=== PATIENT | male | born 1980 | race Two or more races ===

== ENCOUNTER 2020-12-01 12:45 | Emergency (ER) | payer OTHER ==
[~2020-12-01] VITALS: Ht 172.7 cm; Wt 72.7 kg
[2020-12-01 13:09] VITALS: BP 151/101
[2020-12-01] MEDS ORDERED: NAPR-56 PO (13:48)
== END 2020-12-01 14:15 | disposition home or self-care (01) ==
LOC: ER 12:45
DX: M25.562 Pain in left knee (principal); M25.462 Effusion, left knee; Z79.899 Other long term (current) drug therapy
CPT/HCPCS: 29505; 99283